=== PATIENT | female | born 1980 | race Caucasian/White ===

== ENCOUNTER 2019-02-14 07:01 | Day surgery (SDC) | payer BC ==
[~2019-02-14 07:01] MED LIST: CEFAZOLIN 2 GM/50 ML (PMX) 50 ML IVPB
[2019-02-14] MEDS ORDERED: DESFLURANE 15 MIN (09:30)
[2019-02-14] MEDS ORDERED: LIDOCAINE 2% (SDV) 5 ML INJ (09:43)
[2019-02-14] MEDS ORDERED: FENTAnyl 50 MCG/ML VIAL ×2 (09:43→10:02)
[2019-02-14] MEDS ORDERED: PROPOFOL 20 ML (09:43)
[2019-02-14] MEDS ORDERED: CEFAZOLIN 1 GM INJ (09:43)
[2019-02-14] MEDS ORDERED: MIDAZOLAM 1 MG/ML 2 ML INJ (09:43)
[2019-02-14] MEDS ORDERED: FAMOTIDINE 20 MG INJ (09:54)
[2019-02-14] MEDS ORDERED: METOCLOPRAMIDE 10 MG INJ (09:54)
[2019-02-14] MEDS ORDERED: ONDANSETRON 4 MG INJ (09:54)
[2019-02-14] MEDS ORDERED: DEXAMETHASONE 4 MG/ML 5 ML INJ (09:54)
[2019-02-14] MEDS: POLYMYXIN/BACITRACIN 1L IRRIG (10:04)
[2019-02-14] MEDS ORDERED: ESMOLOL 10 ML (10:09)
[2019-02-14] MEDS ORDERED: KETOROLAC 30 MG INJ (10:26)
[2019-02-14] MEDS ORDERED: OXYCODONE/ACETAMINOPHEN (5/325) TAB PO ×2 (10:30)
[2019-02-14] MEDS: BUPIVACAINE 0.5% (SDV) 30 ML INJ (10:30)
[2019-02-14] MEDS ORDERED: ONDANSETRON 4 MG INJ IV (10:30)
[2019-02-14] MEDS ORDERED: HYDROmorphONE 1 MG/5 ML IV SYRINGE IV ×3 (10:30)
[2019-02-14] MEDS ORDERED: MEPERIDINE 25 MG INJ IV (10:30)
== END 2019-02-14 12:24 | disposition home or self-care (01) ==
LOC: SDS 07:01
DX: M21.611 Bunion of right foot (principal); M20.61 Acquired deformities of toe(s), unspecified, right foot; E78.5 Hyperlipidemia, unspecified
CPT/HCPCS: 73630; 88304; 88311